=== PATIENT | male | born 1985 | race Caucasian/White ===

== ENCOUNTER 2017-05-02 03:05 | Emergency (ER) | payer SELFPAY ==
[~2017-05-02] VITALS: Ht 185.4 cm; Wt 82.0 kg
[2017-05-02 03:13] VITALS: BP 144/68; PULSE 104; RESP 20; TEMP 98; O2SAT 100
[2017-05-02] MEDS ORDERED: OXYC1CAP PO (03:24)
[2017-05-02] MEDS ORDERED: SODIUM CHLOR 0.9% 1000 ML INJ 1,000 ML IV SCH (03:32)
--- NOTE | 2017-05-02 03:32 | PD ---
HPI Chief Complaint: Abdominal Pain Time Seen by Provider: 03:12 Travel History International Travel<30 days: No Contact w/Intl Traveler<30days: No Traveled to known affect area: No History of Present Illness HPI His is a 32-year-old male with a history of hepatitis C, who presents today with complaints of abdominal pain. Patient states that he has been seen at 2 other hospitals. He states that he was told that he needs to see a extension service supervisor. The patient denies any fevers, chills. He reports as though he feels as though his liver is inflamed. He reports nausea with no vomiting or diarrhea. 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 He states he's been clean for one year. PFSH Past Medical History Medical History: Denies Significant Hx Medical other: Yes (pt states he has hep c ) Tetanus Vaccination: < 5 Years Past Surgical History Surgical History: No Previous Surgery Social History Alcohol Use: No Tobacco Use: Yes (1 ppd ) Substance Use: Yes Allergies-Medications (Allergen,Severity, Reaction): Coded Allergies: acetaminophen (Unverified Adverse Reaction, Unknown, 05/02/17) Reported Meds & Prescriptions Reported Meds & Active Scripts Active Reported Oxycodone (Oxycodone HCl) 5 Mg Cap 5 Mg PO Q4H PRN Review of Systems Except as stated in HPI: all other systems reviewed are Neg General / Constitutional: No: Fever, Chills HENT: No: Headaches, Neck Pain Cardiovascular: No: Chest Pain or Discomfort, Palpitations Respiratory: No: Cough, Shortness of Breath Gastrointestinal: Positive: Nausea, Abdominal Pain, No: Vomiting, Hematemesis Genitourinary: No: Dysuria, Decreased Urinary Output Musculoskeletal: No: Weakness, Pain Neurologic: No: Weakness, Dizziness, Headache Physical Exam Narrative GENERAL: Well-nourished, well-developed patient in no acute distress. The patient appears to be angry and confrontational.. SKIN: Focused skin assessment warm/dry. HEAD: Normocephalic/atraumatic. EYES: No scleral icterus. No injection or drainage. NECK: Supple, trachea midline. No JVD or lymphadenopathy. CARDIOVASCULAR: Regular rate and rhythm without murmurs, gallops, or rubs. RESPIRATORY: Breath sounds equal bilaterally. No accessory muscle use. GASTROINTESTINAL: Abdomen is soft, nondistended. He has subjective right upper quadrant pain. There is no rebound or guarding. MUSCULOSKELETAL: No cyanosis, or edema. NEUROLOGICAL: Awake and alert. Cranial nerves II through XII intact. Motor grossly within normal limits. Five out of 5 muscle strength in all muscle groups. Normal speech. Data Data Last Documented VS Vital Signs Date Time Temp Pulse Resp B/P (MAP) Pulse Ox O2 Delivery O2 Flow Rate FiO2 05/02/17 03:46 19 99 Room Air 05/02/17 03:13 98.0 104 144/68 (93) Orders Orders Complete Blood Count With Diff (05/02/17 03:32) Comprehensive Metabolic Panel (05/02/17 03:32) Lipase (05/02/17 03:32) Urinalysis - C+S If Indicated (05/02/17 03:32) Iv Access Insert/Monitor (05/02/17 03:32) Ecg Monitoring (05/02/17 03:32) Oximetry (05/02/17 03:32) Ondansetron Inj (Zofran Inj) (05/02/17 03:45) Sodium Chlor 0.9% 1000 Ml Inj (Ns 1000 M (05/02/17 03:32) Sodium Chloride 0.9% Flush (Ns Flush) (05/02/17 03:45) Morphine Inj (Morphine Inj) (05/02/17 03:45) Morphine Inj (Morphine Inj) (05/02/17 05:15) Labs Laboratory Tests Test 05/02/17 03:45 White Blood Count 10.0 TH/MM3 Red Blood Count 4.08 MIL/MM3 Hemoglobin 11.4 GM/DL Hematocrit 33.7 % Mean Corpuscular Volume 82.6 FL Mean Corpuscular Hemoglobin 27.9 PG Mean Corpuscular Hemoglobin Concent 33.7 % Red Cell Distribution Width 17.7 % Platelet Count 227 TH/MM3 Mean Platelet Volume 9.5 FL Neutrophils (%) (Auto) 57.9 % Lymphocytes (%) (Auto) 24.8 % Monocytes (%) (Auto) 8.4 % Eosinophils (%) (Auto) 8.5 % Basophils (%) (Auto) 0.4 % Neutrophils # (Auto) 5.8 TH/MM3 Lymphocytes # (Auto) 2.5 TH/MM3 Monocytes # (Auto) 0.8 TH/MM3 Eosinophils # (Auto) 0.9 TH/MM3 Basophils # (Auto) 0.0 TH/MM3 CBC Comment DIFF FINAL Differential Comment Blood Urea Nitrogen 8 MG/DL Creatinine 0.92 MG/DL Random Glucose 81 MG/DL Total Protein 7.5 GM/DL Albumin 3.3 GM/DL Calcium Level 8.5 MG/DL Alkaline Phosphatase 109 U/L Aspartate Amino Transf (AST/SGOT) 231 U/L Alanine Aminotransferase (ALT/SGPT) 475 U/L Total Bilirubin 0.7 MG/DL Sodium Level 137 MEQ/L Potassium Level 3.6 MEQ/L Chloride Level 105 MEQ/L Carbon Dioxide Level 25.5 MEQ/L Anion Gap 7 MEQ/L Estimat Glomerular Filtration Rate 96 ML/MIN Lipase 374 U/L MDM Medical Decision Making Medical Screen Exam Complete: Yes Emergency Medical Condition: Yes Medical Record Reviewed: Yes Differential Diagnosis Worsening liver function tests versus pancreatitis versus cholecystitis Narrative Course 32-year-old male with history of hep C, presents with right upper quadrant pain. The patient states he's worried he has an inflamed liver secondary to his hepatitis C. He denies a fevers, chills. He denies any vomiting or diarrhea. The patient's AST was in the 250s. ALT was 470s. He states his last LFTs were above 500. He's been given one dose of morphine he'll be given a second dose. I told him we will let him sleep here until the morning and then he will be discharged after that. Diagnosis Primary Impression: Right upper quadrant pain Additional Impressions: elevated LFTs, improved from patient's reported numbers. History of hepatitis C Additional Instructions: Follow up with a extension service supervisor. Disposition: 01 DISCHARGE HOME Condition: Stable Néstor Paula MD May 02, 2017 03:32
[2017-05-02] MEDS ORDERED: SODIUM CHLORIDE 0.9% FLUSH 10 ML FLUSH IV FLUSH PRN (03:45)
[2017-05-02] MEDS ORDERED: MORPHINE SULFATE 8 MG/ML INJ IV PUSH ONE (03:45)
[2017-05-02] MEDS ORDERED: ONDANSETRON HCL 4 MG/2 ML VIAL IVP ONE (03:45)
[2017-05-02 03:46] VITALS: RESP 19; O2SAT 99
[2017-05-02 04:03] LABS: AUTOMATED NEUTROPHIL # 5.8 TH/MM3 (1.8-7.7); BASOPHIL % 0.4 % (0.0-2.0); EOSINOPHIL # 0.9 TH/MM3 (0-0.4); EOSINOPHIL % 8.5 % (0.0-4.0); HEMATOCRIT 33.7 % (39.0-51.0); HEMO FLAGS DIFF FINAL; LYMPH % 24.8 % (9.0-44.0); LYMPHOCYTE # 2.5 TH/MM3 (1.0-4.8); MEAN CELL VOLUME 82.6 FL (80.0-100.0); MEAN CORPUSCULAR HEMOGLOBIN 27.9 PG (27.0-34.0); MEAN CORPUSCULAR HGB CONC 33.7 % (32.0-36.0); MONO % 8.4 % (0.0-8.0); NEUT % 57.9 % (16.0-70.0); PLATELET COUNT 227 TH/MM3 (150-450); RED BLOOD COUNT 4.08 MIL/MM3 (4.50-5.90); RED CELL DISTRIBUTION WIDTH 17.7 % (11.6-17.2)
[2017-05-02 04:22] LABS: ALT (GPT) 475 U/L (12-78); ANION GAP 7 MEQ/L (5-15); AST (GOT) 231 U/L (15-37); BICARBONATE 25.5 MEQ/L (21.0-32.0); BLOOD UREA NITROGEN 8 MG/DL (7-18); CHLORIDE 105 MEQ/L (98-107); GLOMERULAR FILTRATION RATE 96 ML/MIN (>89); POTASSIUM 3.6 MEQ/L (3.5-5.1); SODIUM (NA) 137 MEQ/L (136-145)
[2017-05-02 04:24] LABS: ALKALINE PHOSPHATASE 109 U/L (45-117); TOTAL BILIRUBIN ADULT 0.7 MG/DL (0.2-1.0)
[2017-05-02] MEDS ORDERED: MORPHINE SULFATE 4 MG/ML INJ IV PUSH ONE (05:15)
[2017-05-02 05:26] VITALS: BP 132/66; PULSE 71; RESP 20; O2SAT 98
[2017-05-02 05:38] VITALS: BP 112/68
[2017-05-02 05:44] LABS: BLOOD, URINE NEG (NEG); COMMENT (UR) CULT NOT INDICATED; CULTURE IF INDICATED CULT NOT INDICATED; GLUCOSE,URINE NEG (NEG); KETONE, URINE NEG (NEG); NITRITE,URINE NEG (NEG); PH, URINE 5.5 (5.0-8.5); URINE COLOR YELLOW (YELLW/STRAW)
== END 2017-05-02 06:35 | disposition home or self-care (01) ==
LOC: NEPE 03:05
DX: R10.11 Right upper quadrant pain (principal); R79.89 Other specified abnormal findings of blood chemistry; R11.0 Nausea; F17.200 Nicotine dependence, unspecified, uncomplicated
CPT/HCPCS: 80053; 81001; 83690; 85025; 96361; 96374; 96375; 96376; 99284; J2270; J2405; J7030

== ENCOUNTER 2017-05-02 07:58 | Emergency (ER) | payer OTHER ==
[~2017-05-02] VITALS: Ht 185.4 cm; Wt 86.0 kg
[~2017-05-02 07:58] MED LIST: OXYC1CAP PO
[2017-05-02 08:06] VITALS: BP 120/91; PULSE 87; RESP 17; TEMP 97.8; O2SAT 100
--- NOTE | 2017-05-02 08:17 | PD ---
HPI Chief Complaint: Vela act Time Seen by Provider: 08:10 Travel History International Travel<30 days: No Contact w/Intl Traveler<30days: No Traveled to known affect area: No History of Present Illness HPI Patient is a 32-year-old male who is presented Vela act by law enforcement as he was making paranoid statements of people who were going after him and wanting to hurt him. He shouldn't stated that he would like to kill himself. Patient this time contracts for safety. Patient reports that he was only upset and made those comments but didn't mean it. Patient with no complaints at this time. [facility] Past Medical History Medical History: Denies Significant Hx Past Surgical History Surgical History: No Previous Surgery Social History Alcohol Use: No Tobacco Use: Yes (1 ppd ) Substance Use: Yes Allergies-Medications (Allergen,Severity, Reaction): Coded Allergies: acetaminophen (Verified Adverse Reaction, Unknown, hives, 05/02/17) Reported Meds & Prescriptions Reported Meds & Active Scripts Active No Active Prescriptions or Reported Medications Review of Systems General / Constitutional: No: Fever Eyes: No: Visual changes HENT: No: Headaches Cardiovascular: No: Chest Pain or Discomfort Respiratory: No: Shortness of Breath Gastrointestinal: No: Abdominal Pain Genitourinary: No: Dysuria Musculoskeletal: No: Pain Skin: No Rash Neurologic: No: Weakness Psychiatric: Positive: Depression Endocrine: No: Polydipsia Hematologic/Lymphatic: No: Easy Bruising Physical Exam Narrative GENERAL: NAD SKIN: Focused skin assessment warm/dry. HEAD: Atraumatic. Normocephalic. EYES: Pupils equal and round. No scleral icterus. No injection or drainage. ENT: No nasal bleeding or discharge. Mucous membranes pink and moist. NECK: Trachea midline. No JVD. CARDIOVASCULAR: Regular rate and rhythm. No murmur appreciated. RESPIRATORY: No accessory muscle use. Clear to auscultation. Breath sounds equal bilaterally. GASTROINTESTINAL: Abdomen soft, non-tender, nondistended. Hepatic and splenic margins not palpable. MUSCULOSKELETAL: No obvious deformities. No clubbing. No cyanosis. No edema. NEUROLOGICAL: Awake and alert. No obvious cranial nerve deficits. Motor grossly within normal limits. Normal speech. PSYCHIATRIC: Appropriate mood and affect; insight and judgment normal. Denies si /hi [facility] Medical Decision Making Medical Screen Exam Complete: Yes Emergency Medical Condition: Yes Medical Record Reviewed: Yes Differential Diagnosis differential includes depression, homelessness, si Narrative Course Patient was discharged emergency room at 0332 and slept in the ER for a few hours and then was vela acted by police officers as he apparently refused to leave the hospital and was deemed trespassing. Patient made these comments during this time. Patient cleared for psychiatric screening this time. Scripts No Active Prescriptions or Reported Meds Farhana Phelps DO May 02, 2017 08:17
[2017-05-02 11:38] VITALS: BP 118/83; PULSE 78; RESP 17; TEMP 98; O2SAT 99
[2017-05-02 12:30] VITALS: BP 118/83; TEMP 97.8
[2017-05-02 17:30] VITALS: BP 118/83; PULSE 87; RESP 17; O2SAT 99
--- NOTE | 2017-05-02 17:31 | PD ---
Physical Exam Time Seen by Provider: 17:30 Narrative LU Blanc has evaluated the patient, lifted Vela act and cleared the patient for discharge. Data Data Last Documented VS Vital Signs Date Time Temp Pulse Resp B/P (MAP) Pulse Ox O2 Delivery O2 Flow Rate FiO2 05/02/17 12:30 97.8 87 17 118/83 (95) 99 05/02/17 11:38 Room Air Orders Orders Psych Screen (05/02/17 08:12) Drug Screen, Random Urine (05/02/17 08:12) Diet Regular Basic (05/02/17 Dinner) Labs Laboratory Tests Test 05/02/17 09:25 Urine Opiates Screen POS Urine Barbiturates Screen NEG Urine Amphetamines Screen POS Urine Benzodiazepines Screen POS Urine Cocaine Screen NEG Urine Cannabinoids Screen NEG MDM Supervised Visit with ZOLTAN: No Narrative Course LU Blanc has evaluated the patient, lifted Vela act and cleared the patient for discharge. Patient contracts safety. Denies suicidal or homicidal ideations. Patient will be provided community resource packet to SY for follow-up. Has friends and family for support. Patient is medically cleared for discharge. Diagnosis Primary Impression: Adjustment disorder Qualified Codes: F43.20 - Adjustment disorder, unspecified Referrals: [facility] (Out patient) [facility] Primary Care Physician Psychiatrist Randy [facility] Patient Instructions: General Instructions, Mood Disorders (ED) Additional Instruction: Contract safety to your self and others Follow-up with psychiatry Follow-up with primary care provider Follow-up with Mele Wright Return to the emergency department immediately with worsening of symptoms Med/Other Pt SpecificInfo: No Change to Meds, No Meds Exist/No RX given Scripts No Active Prescriptions or Reported Meds Disposition: 01 DISCHARGE HOME Condition: Stable Cynthia Phoenix May 02, 2017 17:31
--- NOTE | 2017-05-02 17:41 | PD ---
History of Present Illness Chief Complaint: Psychiatric Symptoms Time Seen by Provider: 17:00 Travel History International Travel<30 Days: No Contact w/Intl Traveler<30days: No Known affected area: No Legal Status Legal Status: Vela Act Vela Act Signed By: Rossy العراقي Vela Act Comment: BA signed by: SARAH WRIGHT Badge#[id number], Case# [id number] History of Present Illness: History of Present Illness Patient is a 32-year-old male with no previous psychiatric history and positive history for substance use disorder who presents to [facility] on a Vela act initiated by SARAH.The Vela act alleges that he was" making paranoid statements of people who were going after him and wanting to hurt him" . Stated he would like to kill himself but did not state how. The patient had shelby seen earlier in the Ed complaining of pain and had received morphine. Current toxicology is positive for amphetamines , benzos and opiates. He reported that he had not used drugs in over a year. He is here from [place] with some friends who he states they left him at a restaurant. He states that he called the police because there were some kids at the restaurant that were threatening him and he wanted police protection. He denies that he said he was going to kill himself. The patient now is denying any suicidal or homicidal ideation, intent or plan and states " I love myself and I have a one year old girl back home". Patient was monitored in [facility] and he presented no behavioral concerns and no suicidality. PFSH Past Medical History Medical History: Denies Significant Hx Diminished Hearing: No Hepatitis: Yes (C) Medical other: Yes (HEP C ) Tetanus Vaccination: > 5 Years Influenza Vaccination: Yes Past Surgical History Surgical History: No Previous Surgery Psychiatric History Psychiatric History Hx Psychiatric Treatment: Denies psych hx History of Inpatient Treatment: No Guns or firearms in home: No Social History Sing[place] male. Lives in [place]. Works as a [employer]. Hx Alcohol Use: No Hx Tobacco Use: Yes (1 ppd ) Hx Substance Use: Yes Substance Use Type: Amphetamines-Stimulants, Benzos (Valium,Xanax) Hx of Substance Use Treatment: Yes Family Psychiatric History Negative Allergies-Medications (Allergen,Severity, Reaction): Coded Allergies: acetaminophen (Verified Adverse Reaction, Unknown, hives, 05/02/17) Reported Meds & Prescriptions Reported Meds & Active Scripts Active No Active Prescriptions or Reported Medications Review of Systems Except as stated in HPI: all other systems reviewed are Neg Mental Status Examination Appearance: Appropriate, Disheveled Consciousness: Alert Orientation: x4 Motor Activity: Normal gait Speech: Unremarkable Language: Adequate Fund of Knowledge: Adequate Attention and Concentration: Adequate Memory: Unremarkable Mood: Appropriate Affect: Appropriate Thought Process & Associations: Intact Thought Content: Appropriate Hallucination Type: None Delusion Type: None Suicidal Ideation: No Suicidal Plan: No Suicidal Intention: No Homicidal Ideation: No Homicidal Plan: No Homicidal Intention: No Insight: Fair Judgment: Poor MDM Medical Decision Making Medical Record Reviewed: Yes Assessment/Plan Patient is a 32-year-old male with no previous psychiatric history and positive history for substance use disorder who presents to [facility] on a Vela act initiated by SARAH.The Vela act alleges that he was" making paranoid statements of people who were going after him and wanting to hurt him" . Stated he would like to kill himself but did not state how. The patient had shelby seen earlier in the Ed complaining of pain and had received morphine. Current toxicology is positive for amphetamines , benzos and opiates. Although he reported that he had not used drugs in over a year. He is here from [place] with some friends who he states they left him at a restaurant. He states that he called the police because there were some kids at the restaurant that were threatening him and he wanted police protection. He denies that he said he was going to kill himself. No evidence of unstable mental illness as defined under the Vela act. Main issue seems to be substance use. He is denying any suicdal or homicidal ideation. Does not meet Vela act criteria. Lift Vela act. Psychiatrically clear for discharge. Orders Orders Psych Screen (05/02/17 08:12) Drug Screen, Random Urine (05/02/17 08:12) Diet Regular Basic (05/02/17 Dinner) Results Vital Signs Date Time Temp Pulse Resp B/P (MAP) Pulse Ox O2 Delivery O2 Flow Rate FiO2 05/02/17 12:30 97.8 87 17 118/83 (95) 99 05/02/17 11:38 98.0 78 17 118/83 (95) 99 Room Air 05/02/17 08:10 87 17 05/02/17 08:06 97.8 87 17 120/91 (101) 100 Laboratory Tests Test 05/02/17 09:25 Urine Opiates Screen POS Urine Barbiturates Screen NEG Urine Amphetamines Screen POS Urine Benzodiazepines Screen POS Urine Cocaine Screen NEG Urine Cannabinoids Screen NEG Diagnosis Primary Impression: Amphetamine abuse Psychiatrically Cleared: Yes Med/ Other Pt Specific Info: No Meds Exist/No RX given Prescriptions No Active Prescriptions or Reported Meds Disposition: 01 DISCHARGE HOME Condition: Stable Jayashree Fu May 02, 2017 17:41
[2017-05-02 17:57] VITALS: BP 118/83; TEMP 97.8
== END 2017-05-02 18:53 | disposition home or self-care (01) ==
LOC: NEPC 07:58 → NEPJ 18:53
DX: F43.20 Adjustment disorder, unspecified (principal); F15.10 Other stimulant abuse, uncomplicated; B19.20 Unspecified viral hepatitis C without hepatic coma; F17.200 Nicotine dependence, unspecified, uncomplicated
CPT/HCPCS: 80307; 99284